=== PATIENT | female | born 1965 | race African-American/Black ===

== ENCOUNTER 2019-03-24 15:20 | Emergency (ER) | payer OTHER ==
[2019-03-24 15:49] VITALS: BMI 37.1
--- NOTE | 2019-03-24 16:15 | PDOC ---
History of Present Illness - General Chief Complaint: Blood Pressure Problem Stated Complaint: URGENT CARE SENT HIGH BLOOD PRESSURE Time Seen by Provider: 03/24/19 15:36 - History of Present Illness Initial Comments: Ms. Morataya is a 53F with PMH of HTN presenting today with lightheadedness and high blood pressure. She reports that when she woke up around noon today she felt lightheaded. No falls. No nausea/no vomiting. She presented to an urgent care where her BP was 170/120 and she was sent to the ED. Denies headache , fever, changes in urine color, change in vision. No shortness of breath. She was diagnosed with HTN 3 years ago. She is prescribed Amlodipine but has not taken BP meds for the past 2.5 years. Reports that it is difficult to remember taking her medication and does not feel like she is sick enough. SocHx: 15 year smoking hx, 4-5 cigarettes per day. Past History - Past Medical History Allergies/Adverse Reactions: Allergies Allergy/AdvReac Type Severity Reaction Status Date / Time aspirin Allergy Verified 03/24/19 15:33 Home Medications: Ambulatory Orders NK [No Known Home Medication] 03/24/19 COPD: No HTN: Yes - Surgical History Appendectomy: Yes - Suicide/Smoking/Psychosocial Hx Smoking History: Former smoker Have you smoked in the past 12 months: No If you are a former smoker, when did you quit?: 20 yrs ago Information on smoking cessation initiated: No Review of Systems - Review of Systems Comments:: GENERAL/CONSTITUTIONAL: No fever or chills. No weakness. Reports lightheadedness. HEAD, EYES, EARS, NOSE AND THROAT: No change in vision. No ear pain or discharge. No sore throat._ CARDIOVASCULAR: No chest pain or shortness of breath_ RESPIRATORY: Denies cough, hemoptysis_ GASTROINTESTINAL: No nausea, vomiting, diarrhea or constipation._ GENITOURINARY: No dysuria, frequency, or change in urination._ MUSCULOSKELETAL: No joint or muscle swelling or pain. No neck or back pain._ SKIN: No rash_ NEUROLOGIC: No headache, vertigo, loss of consciousness, or change in strength/ sensation. ENDOCRINE: No increased thirst. No abnormal weight change_ HEMATOLOGIC/LYMPHATIC: No anemia, easy bleeding, or history of blood clots._ ALLERGIC/IMMUNOLOGIC: No hives or skin allergy._ *Physical Exam - Vital Signs Last Vital Signs Temp Pulse Resp BP Pulse Ox 98.4 F 79 18 173/90 H 98 03/24/19 15:25 03/24/19 15:25 03/24/19 15:25 03/24/19 15:25 03/24/19 15:25 - Physical Exam Comments: GENERAL: Awake, alert, and oriented to person/place/time, in no acute distress_ HEAD: No signs of trauma, normocephalic, atraumatic _ EYES: PERRLA, EOMI, sclera anicteric, conjunctiva clear_ ENT: Hearing grossly normal, nares patent, oropharynx clear without exudates. No uvular deviation. Moist mucosa_ NECK: Normal ROM, supple, no lymphadenopathy, JVD, or masses_ LUNGS: No distress, speaks in full sentences, clear to auscultation bilaterally _ HEART: Regular rate and rhythm, normal S1 and S2, no murmurs appreciated, peripheral pulses normal and equal bilaterally._ ABDOMEN: Soft, nontender, normoactive bowel sounds. No guarding, no rebound. No masses_ EXTREMITIES: Normal inspection, Normal range of motion, no edema. No clubbing or cyanosis_ NEUROLOGICAL: Cranial nerves II through XII grossly intact. Normal speech, normal gait, no focal sensorimotor deficits _ SKIN: Warm, Dry, normal turgor, no rashes or lesions noted_ ED Treatment Course - LABORATORY CBC & Chemistry Diagram: 03/24/19 18:05 03/24/19 18:05 Medical Decision Making - Medical Decision Making 53F with PMH of HTN, nonadherent to BP medications, with lightheadedness that started at noon. Sent in by urgent care. No chest pain, no shortness of breath. BP at bedside 170/98. Will obtain CBC, CMP, UA, repeat EKG. 03/24/19 17:09 EKG shows 66 bpm, NSR, no axis deviation, no ST elevation or depression. 03/24/19 19:23 5 mg Norvasc given PO. Patient's repeat BP much improved, 130/90. Lytes wnl. Plan to discharge home and f/u PCP for hypertension medication optimization. Bedside counseling provided for medication compliance. *DC/Admit/Observation/Transfer Diagnosis at time of Disposition: Hypertension Qualifiers: Hypertension type: unspecified Qualified Code(s): I10 - Essential (primary) hypertension - Discharge Dispostion Disposition: HOME Condition at time of disposition: Stable Decision to Admit order: No - Referrals Referrals: Genevieve Nicholson MD [Primary Care Provider] - - Patient Instructions Printed Discharge Instructions: DI for High Blood Pressure Additional Instructions: Please take your Amlodipine medication as prescribed for your blood pressure. Please follow up with your PCP to better manage your high blood pressure. - Post Discharge Activity
--- NOTE | 2019-03-24 17:35 | EKG ---
Test Reason : Blood Pressure : / mmHG Vent. Rate : 066 BPM Atrial Rate : 066 BPM P-R Int : 158 ms QRS Dur : 078 ms QT Int : 384 ms P-R-T Axes : 030 -22 028 degrees QTc Int : 402 ms NORMAL SINUS RHYTHM NONSPECIFIC ST AND T WAVE ABNORMALITY ABNORMAL ECG NO PREVIOUS ECGS AVAILABLE Confirmed by BRANDY HARVEY MD ([id number]) on 03/24/2019 5:35:01 PM Referred By: Confirmed By:BRANDY HARVEY MD
[2019-03-24] MEDS ORDERED: amLODIPine BESYLATE 5 MG TABLET (FP) ONE (18:05)
[2019-03-24] MEDS ORDERED: amLODIPine BESYLATE 5 MG TABLET (FP) PO ONE (18:06)
[2019-03-24 18:22] LABS: BASO % 0.8 % (0-2.0); EOS % 1.8 % (0-4.5); HEMATOCRIT 45.4 % (32.4-45.2); HEMOGLOBIN 14.9 GM/dL (10.7-15.3); LYMPH % 28.9 % (8-40); MCH 27.6 pg (25.7-33.7); MCHC 32.7 g/dl (32.0-36.0); MEAN CELL VOLUME 84.3 fl (80-96); MEAN PLT VOLUME 10.4 fl (7.5-11.1); MONO % 4.7 % (3.8-10.2); NEUT % 63.8 % (42.8-82.8); PLATELET COUNT 199 K/MM3 (134-434); RBC 5.38 M/mm3 (3.60-5.2); RDW 14.2 % (11.6-15.6); WHITE BLOOD COUNT 7.1 K/mm3 (4.0-10.0)
[2019-03-24 18:51] LABS: BILIRUBIN,TOTAL 0.5 mg/dL (0.2-1); BLOOD UREA NITROGEN 13.8 mg/dL (7-18); CALCIUM 9.5 mg/dL (8.5-10.1); CREATININE 0.8 mg/dL (0.55-1.3); POTASSIUM 4.1 mmol/L (3.5-5.1); TOT PROT 7.1 g/dl (6.4-8.2)
[2019-03-24 18:56] LABS: URINE APPEARANCE CLEAR; URINE BILIRUBIN NEGATIVE (NEGATIVE); URINE COLOR YELLOW; URINE GLUCOSE (UA) NEGATIVE (NEGATIVE); URINE KETONE NEGATIVE (NEGATIVE); URINE LEUK ESTERASE 1+ (NEGATIVE); URINE NITRITE NEGATIVE (NEGATIVE); URINE PROTEIN NEGATIVE (NEGATIVE); URINE UROBILINOGEN 0.2 mg/dL (0.2-1.0)
[2019-03-24 19:14] LABS: HYALINE CASTS 0.35 /lpf (0-8); URINE BACTERIA 21.8 /hpf (NEGATIVE); URINE RBC 6.5 /hpf (0-4); URINE WBC 4.3 /hpf (0-5)
--- NOTE | 2019-03-24 19:30 | PDOC ---
Documentation entered by Amanda Nicholson SCRIBE, acting as scribe for Ledy Lee MD. Ledy Lee MD: This documentation has been prepared by the Lyn holman Xhesika, SCRIBE, under my direction and personally reviewed by me in its entirety. I confirm that the documentation accurately reflects all work, treatment, procedures, and medical decision making performed by me. Attending Attestation - Resident Resident Name: Rafael Beckwith - ED Attending Attestation I have performed the following: I have examined & evaluated the patient, The case was reviewed & discussed with the resident, I agree w/resident's findings & plan, Exceptions are as noted - HPI HPI: 03/24/19 16:44 The patient is a 53 year old female with a significant past medical history of hypertension (noncompliant with medication) who presents to the ED with lightheadedness and high blood pressure since this morning. Pt went to urgent care and her BP was 170/120 and was advised to come to the ED for further evaluations. The patient notes she has not taken her Amlodipine in the past 3 years. The patient denies vision changes, chest pain, shortness of breath, headache and dizziness. Denies fever, chills, nausea, vomiting, diarrhea and constipation. Denies dysuria, frequency, urgency and hematuria.No sick contacts or travel. No new changes in medications. Allergies:Aspirin Social history: previous smoker, quit 15 years ago. - Physicial Exam PE: 03/24/19 16:59 GENERAL: Awake, alert, and fully oriented, in no acute distress HEAD: No signs of trauma EYES: PERRLA, EOMI, sclera anicteric, conjunctiva clear ENT: Auricles normal inspection, hearing grossly normal, nares patent, oropharynx clear without exudates. Moist mucosa NECK: Normal ROM, supple, no lymphadenopathy, JVD, or masses LUNGS: Breath sounds equal, clear to auscultation bilaterally. No wheezes, and no crackles HEART: Regular rate and rhythm, normal S1 and S2, no murmurs, rubs or gallops ABDOMEN: Soft, nontender, normoactive bowel sounds. No guarding, no rebound. No masses EXTREMITIES: Normal range of motion, no edema. No clubbing or cyanosis. No cords, erythema, or tenderness NEUROLOGICAL: Cranial nerves II through XII grossly intact. Normal speech, normal gait SKIN: Warm, Dry, normal turgor, no rashes or lesions noted. - Medical Decision Making 03/24/19 19:29 this pt has bewen noncpomplinat with her BP meds she was given norvasc and her BP came down ekg unremarkable;e labs reviewed imp essential HTn plan d/c home and pt a;mariama has norvasc RX
[2019-03-24 19:42] VITALS: BP 132/83; PULSE 75; TEMP 96.7
== END 2019-03-24 19:45 | disposition home or self-care (01) ==
LOC: JER 15:20
DX: I10 Essential (primary) hypertension (principal); Z91.14 Patient's other noncompliance with medication regimen
CPT/HCPCS: 36415; 80053; 81003; 85025; 93005; 93010; 99283-25